=== PATIENT | male | born 1955 | race Caucasian/White ===

== ENCOUNTER → 2019-09-07 | Outpatient (CLI) | payer MEDICARE ==
[~2019-09-07] VITALS: Ht 180.3 cm; Wt 99.5 kg
[~2019-09-07] MED LIST: ADV250 IH; ALBU8HFA IH; ATOR10TA84 PO; FLUT16H NASAL; IPRA3AMP24 NEB; TIOT4MIS2 IH; TRIA1CAP2 PO
[2019-09-07 09:57] VITALS: BP 126/85
== END | disposition home or self-care (01) ==
LOC: SRCNTR 09:57
PROVIDERS: ATTEND Internal Medicine
DX: J44.9 Chronic obstructive pulmonary disease, unspecified (principal); F17.200 Nicotine dependence, unspecified, uncomplicated
CPT/HCPCS: G0463